=== PATIENT | male | born 1985 | race Asian ===

== ENCOUNTER 2017-10-06 10:35 | Emergency (ER) | payer OTHER ==
[~2017-10-06] VITALS: Ht 177.8 cm; Wt 84.0 kg
[2017-10-06 12:20] VITALS: BP 107/58
== END 2017-10-06 13:22 | disposition home or self-care (01) ==
LOC: ED 12:23
DX: H53.8 Other visual disturbances (principal)
CPT/HCPCS: 70450; 99284